=== PATIENT | female | born 1980 | race Caucasian/White ===

== ENCOUNTER 2018-12-10 23:26 | Emergency (ER) | payer SELFPAY ==
[~2018-12-10] VITALS: Ht 157.5 cm; Wt 67.1 kg
[2018-12-10 23:33] VITALS: BP 147/73
[2018-12-10] MEDS ORDERED: NAPROXEN 500 MG TABLET PO ONE (23:45)
[2018-12-10] MEDS ORDERED: ALPRAZolam 0.5 MG TABLET PO ONE (23:45)
[2018-12-10] MEDS ORDERED: HYDROcodone/APAP 5/325MG 1 TAB TABLET PO ONE (23:45)
[2018-12-10] MEDS ORDERED: DICL50TA4 PO (23:47)
[2018-12-10] MEDS ORDERED: CLIN300C8 PO (23:47)
--- NOTE | 2018-12-10 23:48 | PHYS DOC ---
Past Medical History Past Medical History: Anxiety Alcohol Use: None Drug Use: None Adult General Chief Complaint Chief Complaint: DENTAL PROBLEM HPI HPI Patient is a 38 year old female who presents complaining of right lower gum dental pain for 6 months. Patient rates the pain is mild and worse in the last couple days. She states this pain is making her anxiety levels go high. Patient denies any suicidal or homicidal ideations. Denies any fever or trismus. Review of Systems Review of Systems Constitutional: Denies fever or chills [] HENT: Reports dental pain. Denies nasal congestion or sore throat [] Musculoskeletal: Denies back pain or joint pain [] Integument: Denies rash or skin lesions [] Neurologic: Denies headache, focal weakness or sensory changes [] Pysch:Reports anxiety All other systems were reviewed and found to be within normal limits, except as documented in this note. Current Medications Current Medications Current Medications Medications (Trade) Dose Ordered Sig/Víctor Start Time Stop Time Status Last Admin Dose Admin Acetaminophen/ Hydrocodone Bitart (Lortab 5/325) 1 tab 1X ONCE 12/10/18 23:45 12/10/18 23:46 Alprazolam (Xanax) 0.5 mg 1X ONCE 12/10/18 23:45 12/10/18 23:46 Naproxen (Naprosyn) 500 mg 1X ONCE 12/10/18 23:45 12/10/18 23:46 Allergies Allergies Allergies Coded Allergies Type Severity Reaction Last Updated Verified Penicillins Allergy Unknown 12/10/18 Yes Physical Exam Physical Exam Constitutional: Well developed, well nourished, no acute distress, non-toxic appearance. [] HENT: Normocephalic, atraumatic, bilateral external ears normal, oropharynx moist, no oral exudates, nose normal. [] Missing upper teeth. Missing all the lower teeth the few pieces remaining are decayed. There is swelling on the right cheek around the molars suspicious for dental abscess. There is redness along the gumline on the right lower gum Skin: Warm, dry, no erythema, no rash. [] Back: No tenderness, no CVA tenderness. [] Extremities: No tenderness, no cyanosis, no clubbing, ROM intact, no edema. [] Neurologic: Alert and oriented X 3, normal motor function, normal sensory function, no focal deficits noted. [] Psychologic: Appears anxious Current Patient Data Vital Signs Vital Signs Date Time Temp Pulse Resp B/P (MAP) Pulse Ox O2 Delivery O2 Flow Rate FiO2 12/10/18 23:33 97.9 96 18 147/73 (97) 98 Room Air 97.9 EKG EKG [] Radiology/Procedures Radiology/Procedures [] Course & Med Decision Making Course & Med Decision Making Pertinent Labs and Imaging studies reviewed. (See chart for details) This is a 38-year-old female patient presented to the ED with a dental abscess and anxiety. Instructed to follow-up with her own doctor for anxiety. Discharged with clindamycin and diclofenac. Follow-up with her dentist in 1-2 weeks. Dragon Disclaimer Dragon Disclaimer This electronic medical record was generated, in whole or in part, using a voice recognition dictation system. Departure Departure Impression: Primary Impression: Anxiety Additional Impression: Abscess, dental Disposition: HOME, SELF-CARE Condition: STABLE Referrals: NO PCP (PCP) Follow up with the primary care doctor and dentist Patient Instructions: Anxiety and Panic Attacks, Dental Abscess Additional Instructions: You were evaluated in the emergency room for dental abscess and anxiety. Please follow-up with your own doctor for anxiety and dentist for dental issues. Complete your antibiotics. Take the prescribed medications as needed for pain. Scripts Clindamycin Hcl (CLINDAMYCIN HCL) 300 Mg Capsule 1 CAP PO TID, #21 CAP Prov: YARITZA SIDHU APRN 12/10/18 Diclofenac Sodium (DICLOFENAC SODIUM) 50 Mg Tablet. 1 TAB PO BID, #30 TAB 0 Refills Prov: YARITZA SIDHU APRN 12/10/18 Problem Qualifiers YARITZA SIDHU APRN Dec 10, 2018 23:47
== END 2018-12-10 23:51 | disposition home or self-care (01) ==
LOC: ER 23:26
DX: K04.7 Periapical abscess without sinus (principal); F41.9 Anxiety disorder, unspecified; Z88.0 Allergy status to penicillin
CPT/HCPCS: 99284

== ENCOUNTER 2018-12-19 11:58 | Emergency (ER) | payer SELFPAY ==
[~2018-12-19] VITALS: Ht 157.5 cm; Wt 63.5 kg
[~2018-12-19 11:58] MED LIST: CLIN300C8 PO; DICL50TA4 PO
[2018-12-19 12:45] VITALS: BP 121/89
--- NOTE | 2018-12-19 12:58 | PHYS DOC ---
Past Medical History Past Medical History: Anxiety Alcohol Use: None Drug Use: None Adult General Chief Complaint Chief Complaint: OTHER COMPLAINTS [facility] HPI Patient is a 38 year old female with history of anxiety who presents today requesting a note to return to work, patient states yesterday she fell at work and they will not let her return without a note. Patient denies any loss of consciousness when she fell. She states she hit her head on the ground. She is also requesting something for chronic anxiety. Denies any suicidal or homicidal ideations. Review of Systems Review of Systems Constitutional: Denies fever or chills [] Eyes: Denies change in visual acuity, redness, or eye pain [] HENT: Denies nasal congestion or sore throat [] Respiratory: Denies cough or shortness of breath [] Cardiovascular: No additional information not addressed in HPI [] GI: Denies abdominal pain, nausea, vomiting, bloody stools or diarrhea [] : Denies dysuria or hematuria [] Musculoskeletal: Denies back pain or joint pain [] Integument: Denies rash or skin lesions [] Neurologic: Reports falling at work and hitting her head. Denies headache, focal weakness or sensory changes [] Pysch: Reports chronic anxiety All other systems were reviewed and found to be within normal limits, except as documented in this note. Allergies Allergies Allergies Coded Allergies Type Severity Reaction Last Updated Verified Penicillins Allergy Unknown 12/10/18 Yes Physical Exam Physical Exam Constitutional: Well developed, well nourished, no acute distress, non-toxic appearance. [] HENT: Normocephalic, atraumatic, bilateral external ears normal, oropharynx moist, no oral exudates, nose normal. [] Eyes: PERRLA, EOMI, conjunctiva normal, no discharge. [] Neck: Normal range of motion, no tenderness, supple, no stridor. [] Cardiovascular:Heart rate regular rhythm, no murmur [] Lungs & Thorax: Bilateral breath sounds clear to auscultation [] Abdomen: Bowel sounds normal, soft, no tenderness, no masses, no pulsatile masses. [] Skin: Warm, dry, no erythema, no rash. [] Back: No tenderness, no CVA tenderness. [] Extremities: No tenderness, no cyanosis, no clubbing, ROM intact, no edema. [] Neurologic: Alert and oriented X 3, normal motor function, normal sensory function, no focal deficits noted. Forehead noted without tiny bruise. Cranial nerves II through XII intact. Psychologic: Patient appears calm. EKG EKG [] Radiology/Procedures Radiology/Procedures [] Course & Med Decision Making Course & Med Decision Making Pertinent Labs and Imaging studies reviewed. (See chart for details) This is a 38-year-old female patient presenting to the ED today requesting a note to return to work after she fell yesterday. No loss of consciousness. Note provided for work. She also wanted something for chronic anxiety. Informed patient she needs to follow-up with her own PCP or [facility] for chronic anxiety. She is not suicidal or homicidal. She was discharged to home. Dragon Disclaimer Dragon Disclaimer This electronic medical record was generated, in whole or in part, using a voice recognition dictation system. Departure Departure Impression: Primary Impression: Anxiety Additional Impressions: Fall from standing Forehead contusion Disposition: HOME, SELF-CARE Condition: STABLE Referrals: NO PCP (PCP) Follow-up with your own doctor or [facility] Patient Instructions: Anxiety and Panic Attacks, Contusion, [id number], Fall Prevention and Home Safety Additional Instructions: You were evaluated in the emergency room and you can return to work today. Follow-up with your own doctor or [facility] for anxiety medicine. Problem Qualifiers Additional Impressions: Fall from standing Encounter type: initial encounter Qualified Codes: W19.XXXA - Unspecified fall, initial encounter Forehead contusion Encounter type: initial encounter Qualified Codes: S00.83XA - Contusion of other part of head, initial encounter YARITZA SIDHU APRN Dec 19, 2018 12:58
[2018-12-19] MEDS ORDERED: ALPRAZolam 0.5 MG TABLET PO ONE (13:00)
== END 2018-12-19 13:24 | disposition home or self-care (01) ==
LOC: ER 11:58
DX: S00.83XA Contusion of other part of head, initial encounter (principal); F41.9 Anxiety disorder, unspecified; Z88.0 Allergy status to penicillin; W18.39XA Other fall on same level, initial encounter; Y93.89 Activity, other specified; Y92.89 Other specified places as the place of occurrence of the external cause; Y99.0 Civilian activity done for income or pay
CPT/HCPCS: 99284

== ENCOUNTER 2019-01-27 16:48 | Emergency (ER) | payer SELFPAY ==
[~2019-01-27] VITALS: Ht 157.5 cm; Wt 63.5 kg
[2019-01-27 16:55] VITALS: BP 137/77
[2019-01-27] MEDS ORDERED: CLIN300C8 PO (17:11)
[2019-01-27] MEDS ORDERED: DICL50TA4 PO (17:11)
--- NOTE | 2019-01-27 17:11 | PHYS DOC ---
Past Medical History Past Medical History: Anxiety, Depression Past Surgical History: Tubal ligation Alcohol Use: None Drug Use: None Adult General Chief Complaint Chief Complaint: DENTAL PROBLEM HPI HPI Patient is a 38 year old female with history of anxiety who presents to the ED today complaining of 8 out of 10 lower gum dental pain for 2 days. Patient denies any fever or trismus. Review of Systems Review of Systems Constitutional: Denies fever or chills [] HENT: Reports lower gum dental pain. Musculoskeletal: Denies back pain or joint pain [] Integument: Denies rash or skin lesions [] Neurologic: Denies headache, focal weakness or sensory changes [] All other systems were reviewed and found to be within normal limits, except as documented in this note. Allergies Allergies Allergies Coded Allergies Type Severity Reaction Last Updated Verified Penicillins Allergy Unknown 12/10/18 Yes Physical Exam Physical Exam Constitutional: Well developed, well nourished, no acute distress, non-toxic appearance. [] HENT: Normocephalic, atraumatic, bilateral external ears normal, oropharynx moist, no oral exudates, nose normal. [] Most of her teeth on the lower gum are missing the few remaining on the front lower gum are broken, and decayed. No gum erythema noted. Skin: Warm, dry, no erythema, no rash. [] Back: No tenderness, no CVA tenderness. [] Extremities: No tenderness, no cyanosis, no clubbing, ROM intact, no edema. [] Neurologic: Alert and oriented X 3, normal motor function, normal sensory function, no focal deficits noted. [] Psychologic: Affect normal, judgement normal, mood normal. [] Current Patient Data Vital Signs Vital Signs Date Time Temp Pulse Resp B/P (MAP) Pulse Ox O2 Delivery O2 Flow Rate FiO2 01/27/19 16:55 98.4 71 16 137/77 (97) Room Air 98.4 EKG EKG [] Radiology/Procedures Radiology/Procedures [] Course & Med Decision Making Course & Med Decision Making Pertinent Labs and Imaging studies reviewed. (See chart for details) Patient has infected dental caries, she was put on clindamycin and diclofenac. Follow-up with dentist in one week. Dragon Disclaimer Dragon Disclaimer This electronic medical record was generated, in whole or in part, using a voice recognition dictation system. Departure Departure Impression: Primary Impression: Dentalgia Additional Impression: Infected dental caries Disposition: HOME, SELF-CARE Condition: STABLE Referrals: NO PCP (PCP) Follow-up with your dentist as soon as possible Patient Instructions: Dental Pain, [id number] Additional Instructions: You were evaluated in the emergency room for infected dental caries. Ensure you complete your antibiotics and follow-up with your dentist as soon as possible Scripts Diclofenac Sodium (DICLOFENAC SODIUM) 50 Mg Tablet.dr 1 TAB PO BID, #20 TAB 0 Refills Prov: YARITZA SIDHU APRN 01/27/19 Clindamycin Hcl (CLINDAMYCIN HCL) 300 Mg Capsule 1 CAP PO TID, #21 CAP Prov: YARITZA SIDHU APRN 01/27/19 Problem Qualifiers YARITZA SIDHU APRN Jan 27, 2019 17:11
== END 2019-01-27 17:19 | disposition home or self-care (01) ==
LOC: ER 16:48
DX: K02.9 Dental caries, unspecified (principal); F32.9 Major depressive disorder, single episode, unspecified; F41.9 Anxiety disorder, unspecified; Z98.51 Tubal ligation status; Z88.0 Allergy status to penicillin
CPT/HCPCS: 99283

== ENCOUNTER 2019-02-04 14:14 | Emergency (ER) | payer SELFPAY ==
[~2019-02-04] VITALS: Ht 157.5 cm; Wt 59.0 kg
[2019-02-04 14:38] VITALS: BP 112/74
[2019-02-04] MEDS ORDERED: CHLO15MO2 PO (15:29)
[2019-02-04] MEDS ORDERED: NAPR-514 PO (15:29)
--- NOTE | 2019-02-04 15:30 | PHYS DOC ---
Past Medical History Past Medical History: Anxiety, Depression Past Surgical History: Tubal ligation Alcohol Use: None Drug Use: None Adult General Chief Complaint Chief Complaint: DENTAL PROBLEM HPI HPI Patient is a 38 year old female who presents to the ER with continued complaints of lower dental pain. She states she is out of the diclofenac that was prescribed last week for pain. Pt states that she is still taking the clindamycin that was prescribed. She denies any fever or trismus. She currently rates the pain a 10/10 on the pain scale. She has been taking ibuprofen with no relief of her pain. Review of Systems Review of Systems Constitutional: Denies fever or chills [] HENT: Denies nasal congestion or sore throat; reports lower dental pain and gingival pain[] Respiratory: Denies cough or shortness of breath [] GI: Denies nausea, or vomiting] Integument: Denies rash or skin lesions [] Neurologic: Denies headache, focal weakness or sensory changes [] Allergies Allergies Allergies Coded Allergies Type Severity Reaction Last Updated Verified Penicillins Allergy Unknown 12/10/18 Yes Physical Exam Physical Exam Constitutional: Well developed, well nourished, no acute distress, non-toxic appearance. [] HENT: Normocephalic, atraumatic, bilateral external ears normal, oropharynx moist, no oral exudates, nose normal; gingival erythema without abscess noted to frontal lower jaw, black dental decay noted at root of multiple broken missing teeth. [] Eyes: PERRLA, no discharge. [] Neck: Normal range of motion, no tenderness, supple, no stridor. [] Cardiovascular:Heart rate regular rhythm, no murmur [] Lungs & Thorax: Bilateral breath sounds clear to auscultation [] Skin: Warm, dry, no erythema, no rash. [] Neurologic: Alert and oriented X 3, normal motor function, normal sensory function, no focal deficits noted. [] Psychologic: Affect normal, judgement normal, mood normal. [] Current Patient Data Vital Signs Vital Signs Date Time Temp Pulse Resp B/P (MAP) Pulse Ox O2 Delivery O2 Flow Rate FiO2 02/04/19 14:38 98.0 57 18 112/74 (87) 99 Room Air 98.0 EKG EKG [] Radiology/Procedures Radiology/Procedures [] Course & Med Decision Making Course & Med Decision Making Pertinent Labs and Imaging studies reviewed. (See chart for details) Dx: dental pain, gingivitis Prescriptions written for naproxen and peridex. Pt instructed to call a dentist for follow up appointment and further treatment. Return to the ER if symptoms worsen. Patient verbalized an understanding of home care, medications, follow-up, and return to ED instructions and was in agreement with the plan of care. [] Dragon Disclaimer Dragon Disclaimer This electronic medical record was generated, in whole or in part, using a voice recognition dictation system. Departure Departure Impression: Primary Impression: Dentalgia Additional Impression: Gingivitis Disposition: HOME, SELF-CARE Condition: STABLE Referrals: NO PCP (PCP) Patient Instructions: Dental Pain, [id number] Additional Instructions: Fill prescriptions and use as directed. Follow up with dentist using the referral list provided. Return to the ER if symptoms worsen. Scripts Naproxen (NAPROXEN) 500 Mg Tablet 500 MG PO BID PRN for PAIN for 10 Days, #20 TAB 0 Refills Prov: DIAZ THOMAS APRN 02/04/19 Chlorhexidine Gluconate (PERIDEX) 15 Ml Mouthwash 15 ML PO BID, #1 BOTTLE 0 Refills use after brushing teeth. swish for 30 seconds and spit, do not drink anything or eat immediately after use. Prov: DIAZ THOMAS APRN 02/04/19 Problem Qualifiers DIAZ THOMAS APRN Feb 04, 2019 15:29
== END 2019-02-04 15:55 | disposition home or self-care (01) ==
LOC: ER 14:14
DX: K05.10 Chronic gingivitis, plaque induced (principal); F32.9 Major depressive disorder, single episode, unspecified; Z98.51 Tubal ligation status; Z88.0 Allergy status to penicillin
CPT/HCPCS: 99282

== ENCOUNTER 2019-02-23 18:41 | Emergency (ER) | payer SELFPAY ==
[~2019-02-23] VITALS: Ht 157.5 cm; Wt 59.0 kg
[~2019-02-23 18:41] MED LIST changes: +CHLO15MO2 PO; +NAPR-514 PO
[2019-02-23 19:09] VITALS: BP 157/80
[2019-02-23] MEDS ORDERED: NAPROXEN 500 MG TABLET PO STA (19:19)
[2019-02-23] MEDS ORDERED: NAPR-514 PO (19:41)
--- NOTE | 2019-02-23 19:41 | PHYS DOC ---
Past Medical History Past Medical History: Anxiety, Depression Past Surgical History: Tubal ligation Alcohol Use: None Drug Use: None Adult General Chief Complaint Chief Complaint: Toothache HPI HPI Patient is a 38 year old female who presents to the emergency Department today with complaints of chronic dental pain. Patient states she was last seen here approximately 2-3 weeks ago she was prescribed naproxen and peridex at that time. She denies any fever, facial swelling, difficulty swallowing, cough, nausea, vomiting, or rash. Pt denies any new injury or drainage from the teeth. She states that she has a dental appointment next month to have the teeth extracted. Currently she rates her pain as a 10 out of 10 on the pain scale, she has been taking ibuprofen at home with no relief of her pain. Review of Systems Review of Systems Constitutional: Denies fever or chills [] HENT: Denies nasal congestion or sore throat; see history of present illness] GI: Denies nausea, or vomiting Integument: Denies rash or skin lesions [] Neurologic: Denies headache Current Medications Current Medications Current Medications Medications (Trade) Dose Ordered Sig/Víctor Start Time Stop Time Status Last Admin Dose Admin Naproxen (Naprosyn) 500 mg 1X STAT 02/23/19 19:19 02/23/19 19:21 DC 02/23/19 19:30 500 MG Allergies Allergies Allergies Coded Allergies Type Severity Reaction Last Updated Verified Penicillins Allergy Unknown 12/10/18 Yes Physical Exam Physical Exam Constitutional: Well developed, well nourished, no acute distress, non-toxic appearance. [] HENT: Normocephalic, atraumatic, bilateral external ears normal, bilateral TMs normal, history pharynx normal, oropharynx moist, no oral exudates, nose normal ; diffuse dental decay with black dental roots present of frontal lower jaw, multiple missing teeth, no visible dental abscess, no gingival edema or erythema Eyes: PERRLA, conjunctiva normal, no discharge. [] Neck: Normal range of motion, no tenderness, supple, no stridor. [] Lungs & Thorax: Respirations even and unlabored, no retractions, no respiratory distress[] Skin: Warm, dry, no erythema, no rash. [] Neurologic: Alert and oriented X 3, no focal deficits noted. [] Psychologic: Affect normal, judgement normal, mood normal. [] Current Patient Data Vital Signs Vital Signs Date Time Temp Pulse Resp B/P (MAP) Pulse Ox O2 Delivery O2 Flow Rate FiO2 02/23/19 19:09 98.3 84 16 157/80 (105) 100 Room Air 98.3 EKG EKG [] Radiology/Procedures Radiology/Procedures [] Course & Med Decision Making Course & Med Decision Making Pertinent Labs and Imaging studies reviewed. (See chart for details) [] Dragon Disclaimer Dragon Disclaimer This electronic medical record was generated, in whole or in part, using a voice recognition dictation system. Departure Departure Impression: Primary Impression: Dentalgia Disposition: HOME, SELF-CARE Condition: STABLE Referrals: NO PCP (PCP) Patient Instructions: Dental Pain, [id number] Additional Instructions: Fill prescription and use as directed. Follow up with dentist as planned. Return to the ER if symptoms worsen. Scripts Naproxen (NAPROXEN) 500 Mg Tablet 500 MG PO BID PRN for PAIN for 15 Days, #30 TAB 0 Refills Prov: DIAZ THOMAS APRN 02/23/19 DIAZ THOMAS APRN Feb 23, 2019 19:41
== END 2019-02-23 20:01 | disposition home or self-care (01) ==
LOC: ER 18:41
DX: K08.89 Other specified disorders of teeth and supporting structures (principal); G89.29 Other chronic pain; F41.9 Anxiety disorder, unspecified; F32.9 Major depressive disorder, single episode, unspecified; Z98.51 Tubal ligation status; Z88.0 Allergy status to penicillin
CPT/HCPCS: 99282

== ENCOUNTER 2019-03-10 19:23 | Emergency (ER) | payer SELFPAY ==
[~2019-03-10] VITALS: Ht 157.5 cm; Wt 59.0 kg
[2019-03-10 19:43] VITALS: BP 157/80
[2019-03-10] MEDS ORDERED: NAPR-514 PO (20:07)
[2019-03-10] MEDS ORDERED: CLIN300C8 PO (20:07)
--- NOTE | 2019-03-10 20:08 | PHYS DOC ---
Past Medical History Past Medical History: Anxiety, Depression Past Surgical History: Tubal ligation Alcohol Use: None Drug Use: None Adult General Chief Complaint Chief Complaint: DENTAL PROBLEM HPI HPI 38-year-old female with chronically very poor dentition presents with swollen red and painful lower central incisors she denies any fever chills or sweats. She denies trismus[] Review of Systems Review of Systems Constitutional: Denies fever or chills [] Eyes: Denies change in visual acuity, redness, or eye pain [] HENT: Per history of present illness[] Respiratory: Denies cough or shortness of breath [] Cardiovascular: No additional information not addressed in HPI [] GI: Denies abdominal pain, nausea, vomiting, bloody stools or diarrhea [] All other systems were reviewed and found to be within normal limits, except as documented in this note. Allergies Allergies Allergies Coded Allergies Type Severity Reaction Last Updated Verified Penicillins Allergy Unknown 12/10/18 Yes Physical Exam Physical Exam Constitutional: Well developed, well nourished, no acute distress, non-toxic appearance. [] HENT: Very poor dentition her lower central gum line has multiple fractured teeth with surrounding gingival erythema and no obvious abscess. [] Eyes: PERRLA, EOMI, conjunctiva normal, no discharge. [] Neck: Normal range of motion, no tenderness, supple, no stridor. [] Cardiovascular:Heart rate regular rhythm, no murmur [] Lungs & Thorax: Bilateral breath sounds clear to auscultation [] Abdomen: Bowel sounds normal, soft, no tenderness, no masses, no pulsatile masses. [] Skin: Warm, dry, no erythema, no rash. [] Back: No tenderness, no CVA tenderness. [] Extremities: No tenderness, no cyanosis, no clubbing, ROM intact, no edema. [] Neurologic: Alert and oriented X 3, normal motor function, normal sensory function, no focal deficits noted. [] Psychologic: Affect normal, judgement normal, mood normal. [] Current Patient Data Vital Signs Vital Signs Date Time Temp Pulse Resp B/P (MAP) Pulse Ox O2 Delivery O2 Flow Rate FiO2 03/10/19 19:43 98.6 72 16 157/80 (105) 99 Room Air 98.6 EKG EKG [] Radiology/Procedures Radiology/Procedures [] Course & Med Decision Making Course & Med Decision Making Pertinent Labs and Imaging studies reviewed. (See chart for details) [] Dragon Disclaimer Dragon Disclaimer This electronic medical record was generated, in whole or in part, using a voice recognition dictation system. Departure Departure Impression: Primary Impression: Dentalgia Additional Impressions: Gingivitis Infected dental caries Disposition: HOME, SELF-CARE Condition: STABLE Referrals: NO PCP (PCP) Patient Instructions: Dental Caries, Gingivitis Scripts Naproxen (NAPROXEN) 500 Mg Tablet 1 TAB PO BID PRN for PAIN, #30 TAB 1 Refill Prov: OBEY PENA DO 03/10/19 Clindamycin Hcl (CLINDAMYCIN HCL) 300 Mg Capsule 1 CAP PO TID for Infection, #30 CAP Prov: OBEY PENA DO 03/10/19 Problem Qualifiers OBEY PENA DO Mar 10, 2019 20:08
== END 2019-03-10 20:12 | disposition home or self-care (01) ==
LOC: ER 19:23
DX: K02.9 Dental caries, unspecified (principal); K05.10 Chronic gingivitis, plaque induced; F41.9 Anxiety disorder, unspecified; F32.9 Major depressive disorder, single episode, unspecified; Z98.51 Tubal ligation status; Z88.0 Allergy status to penicillin
CPT/HCPCS: 99283

== ENCOUNTER 2019-09-28 12:25 | Emergency (ER) | payer SELFPAY ==
[~2019-09-28] VITALS: Ht 165.1 cm; Wt 59.0 kg
[2019-09-28 12:35] VITALS: BP 130/98
[2019-09-28] MEDS ORDERED: HYDR25TA PO (12:44)
[2019-09-28] MEDS ORDERED: IBUP-1007 PO (12:44)
[2019-09-28] MEDS ORDERED: CLIN150C14 PO (12:44)
--- NOTE | 2019-09-28 12:44 | PHYS DOC ---
Past Medical History Past Medical History: Anxiety, Depression Past Surgical History: Tubal ligation Alcohol Use: None Drug Use: None Adult General Chief Complaint Chief Complaint: DENTAL PROBLEM [facility] HPI Patient is a 39 year old female with history of frequent emergency room visits for dental pain who presents with complaining of dental pain. Patient complaining of lower jaw and tooth pain for 1 week as a constant pain that did not get better with [id number] pain medication. Patient denies new injuries. Patient currently smoking. Patient also asking for anxiety medication and denies suicidal and homicidal ideation. Patient states she does not have a primary care physician regarding dentist because of lack of insurance and financial problem. Review of Systems Review of Systems Constitutional: Denies fever or chills [] Eyes: Denies change in visual acuity, redness, or eye pain [] HENT: Denies nasal congestion or sore throat [] Respiratory: Denies cough or shortness of breath [] Cardiovascular: No additional information not addressed in HPI [] GI: Denies abdominal pain, nausea, vomiting, bloody stools or diarrhea [] : Denies dysuria or hematuria [] Musculoskeletal: Denies back pain or joint pain [] Integument: Denies rash or skin lesions [] Neurologic: Denies headache, focal weakness or sensory changes [] Endocrine: Denies polyuria or polydipsia [] All other systems were reviewed and found to be within normal limits, except as documented in this note. Allergies Allergies Allergies Coded Allergies Type Severity Reaction Last Updated Verified Penicillins Allergy Unknown 12/10/18 Yes Physical Exam Physical Exam Constitutional: Well developed, well nourished, no acute distress, non-toxic appearance. [] HENT: Normocephalic, atraumatic, bilateral external ears normal, oropharynx moist, no oral exudates, nose normal. [] Eyes: PERRLA, EOMI, conjunctiva normal, no discharge. [] Neck: Normal range of motion, no tenderness, supple, no stridor. [] Cardiovascular:Heart rate regular rhythm, no murmur [] Lungs & Thorax: Bilateral breath sounds clear to auscultation [] Abdomen: Bowel sounds normal, soft, no tenderness, no masses, no pulsatile masses. [] Skin: Warm, dry, no erythema, no rash. [] Back: No tenderness, no CVA tenderness. [] Extremities: No tenderness, no cyanosis, no clubbing, ROM intact, no edema. [] Neurologic: Alert and oriented X 3, normal motor function, normal sensory function, no focal deficits noted. [] Psychologic: Affect normal, judgement normal, mood normal. [] Current Patient Data Vital Signs Vital Signs Date Time Temp Pulse Resp B/P (MAP) Pulse Ox O2 Delivery O2 Flow Rate FiO2 09/28/19 12:35 98.8 109 17 130/98 (109) 99 Room Air 98.8 EKG EKG [] Radiology/Procedures Radiology/Procedures [] Course & Med Decision Making Course & Med Decision Making Pertinent Labs and Imaging studies reviewed. (See chart for details) [] Dragon Disclaimer Dragon Disclaimer This electronic medical record was generated, in whole or in part, using a voice recognition dictation system. Departure Departure Impression: Primary Impression: Dentalgia Additional Impressions: Anxiety Tobacco abuse Tobacco abuse counseling Disposition: HOME, SELF-CARE (at 1240) Condition: STABLE Referrals: NO PCP (PCP) Patient Instructions: Anxiety and Panic Attacks, Dental Pain, Smoking Cessation, Tips For Success Additional Instructions: Follow-up with the dentist in 5-7 days Follow-up with your primary care physician in 3-5 days for anxiety Return to ER if not getting better Scripts Ibuprofen (IBUPROFEN) 600 Mg Tablet 600 MG PO PRN Q6HRS PRN for PAIN, #20 TAB take with food or milk Prov: ISHA KING MD 09/28/19 Hydroxyzine Hcl (HYDROXYZINE HCL) 25 Mg Tablet 1 TAB PO QHS PRN for ANXIETY, #15 TAB Prov: ISHA KING MD 09/28/19 Clindamycin Hcl (CLINDAMYCIN HCL) 150 Mg Capsule 1 CAP PO QID, #28 CAP Prov: ISHA KING MD 09/28/19 Problem Qualifiers ISHA KING MD Sep 28, 2019 12:44
== END 2019-09-28 12:50 | disposition home or self-care (01) ==
LOC: ER 12:25
DX: K08.89 Other specified disorders of teeth and supporting structures (principal); F41.9 Anxiety disorder, unspecified; Z71.6 Tobacco abuse counseling; F32.9 Major depressive disorder, single episode, unspecified; Z98.51 Tubal ligation status; Z88.0 Allergy status to penicillin
CPT/HCPCS: 99283